=== PATIENT | male | born 1985 | race Caucasian/White ===

== ENCOUNTER 2020-04-06 18:52 | Emergency (ER) | payer BC, SELFPAY ==
[2020-04-06 18:57] VITALS: BP 139/85; PULSE 116; RESP 14; TEMP 37.2; O2SAT 98
--- NOTE | 2020-04-06 19:10 | ED.SKABFB ---
HPI - Skin/Abscess/Foreign Bdy General Chief complaint: Skin/Abscess/Foreign Body Stated complaint: right knee hot swollen Time Seen by Provider: 04/06/20 19:06 Source: patient and RN notes reviewed Mode of arrival: ambulatory Limitations: no limitations History of Present Illness HPI narrative: Patient presents today complaining of redness and swelling to his right knee. 2 days ago, he had a lesion that looked like an ingrown hair to the patellar area. Earlier today he popped this area with a sterilized pin and squeezed out pus. Over the past hour it has significantly worsened and gotten more swollen. He tried to clean with peroxide as well. History of diabetes for which he takes glimepiride and Farxiga. Related Data Home Medications Medication Instructions Recorded Confirmed dapagliflozin [Farxiga] 10 mg PO DAILY 04/06/20 04/06/20 glimepiride 2 mg PO DAILY 04/06/20 04/06/20 Allergies Allergy/AdvReac Type Severity Reaction Status Date / Time No Known Allergies Allergy Unverified 04/06/20 18:59 Review of Systems Review of Systems: Narrative: CONSTITUTIONAL: Denies body aches, fever, chills, or sweats. EYES: Denies visual changes, redness, or discharge. ENT: Denies rhinorrhea, congestion, sore throat, or otalgia. CARDIOVASCULAR: Denies chest pain, palpitations, or edema. RESPIRATORY: Denies cough or dyspnea. GASTROINTESTINAL: Denies abdominal pain, nausea, vomiting, or diarrhea. GENITOURINARY: Denies dysuria or hematuria. SKIN: Denies rash, itching. +Redness, swelling, and abscess to the right knee MUSCULOSKELETAL: Denies back pain, joint pain, or myalgia. NEUROLOGIC: Denies headache, numbness, tingling, or weakness. PSYCH: Denies depression or anxiety. [facility] Past Medical History Medical History (Updated 04/06/20 @ 19:27 by Bibi Gleason, [facility], ) History of type 2 diabetes mellitus Comments At time of signature, I have reviewed and agree with nursing past medical, surgical, social and family history unless otherwise noted. Please see nursing chart for further information. There is no relevant family history pertinent to the presenting complaint Exam Narrative: Exam Narrative: GENERAL: Well-appearing, well-nourished, and in no acute distress. HEAD: Normocephalic, atraumatic. EYES: EOMI. No redness or drainage. Conjunctivae normal. ENT: Mucous membranes pink and moist. NECK: Normal AROM. CHEST: No respiratory distress. EXTREMITIES: Mildly erythematous and edematous right knee. 0.5cm pustule to the patella. No induration or fluctuance. SKIN: Warm, dry, no rash. Capillary refill normal. Normal skin turgor. NEURO: No focal deficits. Alert and oriented x3. Gait steady. PSYCH: Normal affect. No signs of depression or anxiety. Course Vital Signs Vital signs: Vital Signs Temperature 99 F 04/06/20 18:57 Pulse Rate 116 H 04/06/20 18:57 Respiratory Rate 14 04/06/20 18:57 Blood Pressure 139/85 04/06/20 18:57 Pulse Oximetry 98 04/06/20 18:57 Temperature 99 F 04/06/20 18:57 Pulse Rate 116 H 04/06/20 18:57 Respiratory Rate 14 04/06/20 18:57 Blood Pressure 139/85 04/06/20 18:57 Pulse Oximetry 98 04/06/20 18:57 Reviewed. Pt has been instructed to follow up with his PCP regarding his elevated blood pressure today. Procedures Other Procedure Procedure 1: Other Procedure: Thin skin over abscess site was removed with foreceps. I did not make an incision. No drainage resulting. Patient tolerated the procedure well. Skin cleaned with betadine prior and dressed with bandaid after finished. Culture obtained. MDM - Skin/Abscess/Foreign Bdy Differential Diagnosis Differential diagnosis: Likely abscess of skin or subcutaneous tissue, cellulitis, impetigo and contact dermatitis Critical Care Time Critical Care Time Critical Care Time: No Discharge Plan Discharge Clinical Impression: Abscess of skin or subcutaneous tissue Qualifiers: Site of cutaneou
--- NOTE | 2020-04-06 19:21 | PC.NURSE ---
1909-- provider attempted to get some drainage out of knee wound to be able to collect a culture. pt tolerated well.
== END 2020-04-06 19:22 | disposition home or self-care (01) ==
PROVIDERS: Emergency Provider Nurse Practitioner
DX: L02.415 Cutaneous abscess of right lower limb (principal); E11.9 Type 2 diabetes mellitus without complications; Z79.84 Long term (current) use of oral hypoglycemic drugs
CPT/HCPCS: 87070; 87075; 87147; 87186; 87205; 99213; G0463